=== PATIENT | male | born 1975 | race African-American/Black ===

== ENCOUNTER 2019-12-03 12:52 | Emergency (ER) | payer OTHER ==
[~2019-12-03] VITALS: Ht 167.6 cm; Wt 90.7 kg
[2019-12-03 13:57] LABS: PLATELET COUNT 28 K/uL (142-355)
[2019-12-03 16:47] VITALS: BP 133/86; TEMP 99.5
== END 2019-12-03 16:40 | disposition home or self-care (01) ==
LOC: ED 12:52
PROVIDERS: Hospitalist
DX: R50.9 Fever, unspecified (principal); J06.9 Acute upper respiratory infection, unspecified; Z20.828 Contact with and (suspected) exposure to other viral communicable diseases; J18.9 Pneumonia, unspecified organism; D69.6 Thrombocytopenia, unspecified
CPT/HCPCS: 36415; 80048; 85027; 87040; 87502; 87635; 87651; 96365; 99284; J1956; U00003